=== PATIENT | female | born 1955 | race Caucasian/White ===

== ENCOUNTER 2017-05-22 10:22 | Emergency (ER) | payer BC, OTHER ==
[2017-05-22 11:07] VITALS: BP 120/78
--- NOTE | 2017-05-22 11:13 | RAD ---
Indication: Wrist injury. 2 views of the wrist demonstrates old injury of the ulnar styloid process. No fracture is identified. IMPRESSION: Old fracture distal ulna. No recent fracture is identified.
--- NOTE | 2017-05-22 12:50 | UC ---
Hand/Wrist HPI - HPI Summary HPI Summary: FOUR WEEKS OF RIGHT WRIST PAIN. HAD TRAUMA INJURY 4WEEKS AGO, BUT HAS REINJURED RIGHT WRIST SEVERAL TIMES SINCE THEN. PAIN IN (RADIAL ASPECT OF) WRIST. WORSE WITH MOVEMENT OF THUMB. - History Of Current Complaint Chief Complaint: UCUpperExtremity Stated Complaint: RIGHT WRIST PAIN Time Seen by Provider: 05/22/17 10:36 Hx Obtained From: Patient Onset/Duration: Sudden Onset, Lasting Weeks, Still Present Severity Initially: Mild Severity Currently: Mild Pain Intensity: 2 Pain Scale Used: 0-10 Numeric Character Of Pain: Sharp, Dull, Aching, Spasmodic Aggravating Factor(s): Movement, Flexion, Extension Alleviating: Nothing Associated Signs And Symptoms: Positive: Negative Related History: Dominant Hand Right - Allergies/Home Medications Allergies/Adverse Reactions: Allergies Allergy/AdvReac Type Severity Reaction Status Date / Time No Known Allergies Allergy Verified 05/22/17 10:35 Home Medications: Home Medications NK [No Home Medications Reported] 05/22/17 [History Confirmed 05/22/17] PMH/Surg Hx/FS Hx/Imm Hx Previously Healthy: Yes - Surgical History Surgical History: Yes Surgery Procedure, Year, and Place: Tubal - Family History Known Family History: Negative: Other - NO JOINT LAXITY - Social History Occupation: Employed Full-time Lives: With Family Alcohol Use: "maybe once a month" Substance Use Type: None Smoking Status (MU): Former Smoker Type: Cigarettes Amount Used/How Often: 1/2 PPD Length of Time of Smoking/Using Tobacco: ~20 Years Have You Smoked in the Last Year: No When Did the Patient Quit Smoking/Using Tobacco: 1999 - Immunization History Most Recent Influenza Vaccination: Not the Season Review of Systems Constitutional: Negative Skin: Negative Eyes: Negative ENT: Negative Respiratory: Negative Cardiovascular: Negative Gastrointestinal: Negative Genitourinary: Negative Motor: Negative Neurovascular: Negative Musculoskeletal: Arthralgia, Myalgia Neurological: Negative Psychological: Negative All Other Systems Reviewed And Are Negative: Yes Physical Exam Triage Information Reviewed: Yes Appearance: Well-Appearing, Well-Nourished, Pain Distress Vital Signs: Initial Vital Signs Temp 97.3 F 05/22/17 10:30 Pulse 80 05/22/17 10:30 Resp 14 05/22/17 10:30 BP 120/78 05/22/17 10:30 Pulse Ox 97 07/27/17 10:30 Vital Signs Reviewed: Yes Eye Exam: Normal Eyes: Positive: Conjunctiva Clear ENT Exam: Normal ENT: Positive: Normal ENT inspection, TMs normal Dental Exam: Normal Neck exam: Normal Neck: Positive: Supple, Nontender, No Lymphadenopathy Respiratory Exam: Normal Respiratory: Positive: Chest non-tender, Lungs clear, Normal breath sounds, No respiratory distress, No accessory muscle use Cardiovascular Exam: Normal Cardiovascular: Positive: RRR, No Murmur, Pulses Normal Abdominal Exam: Normal Musculoskeletal: Positive: Strength Intact, ROM Intact, No Edema, Other: Neurological Exam: Normal Psychological Exam: Normal Psychological: Positive: Normal Response To Family Skin Exam: Normal Hand/Wrist Course/Dx - Differential Dx/Diagnosis Differential Diagnosis/HQI/PQRI: Sprain, Strain Provider Diagnoses: RIGHT WRIST SPRAIN; RIGHT DE QUARVAINS TENOSYNOVITIS Discharge - Discharge Plan Condition: Stable Disposition: HOME Patient Education Materials: Wrist Injury (ED), De Quervain Disease (ED) Referrals: [facility] [place] [facility]IAN REFERRAL [Outside] Eloisa Leon MD [Medical Doctor] - No Primary Care Phys,NOPCP [Primary Care Provider] -
== END 2017-05-22 11:51 | disposition home or self-care (01) ==
LOC: UCCORT 10:22
DX: S63.501A Unspecified sprain of right wrist, initial encounter (principal); M65.4 Radial styloid tenosynovitis [de Quervain]; X58.XXXA Exposure to other specified factors, initial encounter; Y93.9 Activity, unspecified; Y92.9 Unspecified place or not applicable; Z87.891 Personal history of nicotine dependence
CPT/HCPCS: 99212; G0463

== ENCOUNTER 2019-05-18 11:07 | Emergency (ER) | payer BC, OTHER ==
[2019-05-18] MEDS ORDERED: Ondansetron INJ* 2 MG/ML VIAL IV ONE (12:52)
[2019-05-18] MEDS ORDERED: NS 0.9% 1000 ML** 1,000 ML IV ONE (12:52)
[2019-05-18] MEDS ORDERED: Morphine 4 MG/ML VIAL (1 ml) 4 MG/ML VIAL IV ONE (12:52)
--- NOTE | 2019-05-18 12:54 | ED ---
Abdominal Pain/Female - HPI Summary HPI Summary: This patient is a 63 year old F presenting to [facility] accompanied by with a chief complaint of diffuse abdominal pain since 05/15/19. Occurred after eating half a sub. Per triage, the patient rates the pain 8/10 in severity. Patient reports bloating, diarrhea, nausea, fevers, chills. Patient denies vomiting. Pt has PMHx of diverticulitis. - History of Current Complaint Chief Complaint: EDAbdPain Stated Complaint: ABDOMINAL PAIN PER PATIENT Time Seen by Provider: 05/18/19 12:39 Hx Obtained From: Patient Onset/Duration: Lasting Days Timing: Constant Severity Initially: Severe Severity Currently: Severe Pain Intensity: 8 Pain Scale Used: 0-10 Numeric Location: Diffuse Radiates: No Aggravating Factor(s): Food Alleviating Factor(s): Nothing Associated Signs and Symptoms: Positive: Fever, Nausea, Diarrhea, Other: - chills. Negative: Vomiting Allergies/Adverse Reactions: Allergies Allergy/AdvReac Type Severity Reaction Status Date / Time No Known Allergies Allergy Verified 05/22/17 10:35 PMH/Surg Hx/FS Hx/Imm Hx GI History: Reports: Hx Diverticulosis Sensory History: Denies: Hx Legally Blind EENT History: Denies: Hx Deafness - Surgical History Surgery Procedure, Year, and Place: Tubal Infectious Disease History: No Infectious Disease History: Denies: Traveled Outside the [place] in Last 30 Days - Family History Known Family History: Negative: Other - NO JOINT LAXITY - Social History Occupation: Unemployed Alcohol Use: Occasionally Hx Substance Use: No Substance Use Type: Reports: None Smoking Status (MU): Former Smoker Type: Cigarettes Amount Used/How Often: 1/2 PPD Length of Time of Smoking/Using Tobacco: ~20 Years Have You Smoked in the Last Year: No Review of Systems Positive: Fever, Chills Positive: Abdominal Pain, Diarrhea, Nausea. Negative: Vomiting All Other Systems Reviewed And Are Negative: Yes Physical Exam - Summary Physical Exam Summary: GENERAL: Patient is a well-developed and nourished F who is lying comfortable in the stretcher. Patient is not in any acute respiratory distress. HEAD AND FACE: Normocephalic EYES: PERRLA, EOMI x 2. EARS: Hearing grossly intact. MOUTH: Oropharynx within normal limits. NECK: Supple, trachea is midline, no adenopathy, no JVD, no carotid bruit. CHEST: Symmetric, no tenderness at palpation LUNGS: Clear to auscultation bilaterally. No wheezing or crackles. CVS: Regular rate and rhythm, S1 and S2 present, no murmurs or gallops appreciated. ABDOMEN: Soft, Diffusely tender to palpation, especially in LLQ. Bowel sounds are normal. No abnormal abdominal pulsations. EXTREMITIES: Full ROM in all major joints, no edema, no cyanosis or clubbing. NEURO: Alert and oriented x 3. No acute neurological deficits. Speech is normal and follows commands. SKIN: Dry and warm Triage Information Reviewed: Yes Vital Signs On Initial Exam: Initial Vitals Temp Pulse Resp BP Pulse Ox 97.8 F 111 16 140/89 99 05/18/19 11:08 05/18/19 11:08 05/18/19 11:08 05/18/19 11:08 05/18/19 11:08 Vital Signs Reviewed: Yes Diagnostics - Vital Signs Vital Signs Temp Pulse Resp BP Pulse Ox 05/18/19 11:08 97.8 F 111 16 140/89 99 - Laboratory Result Diagrams: 05/18/19 13:07 05/18/19 13:07 Lab Statement: Any lab studies that have been ordered have been reviewed, and results considered in the medical decision making process. - CT CT Abdomen/Pelvis CT Interpretation Completed By: Radiologist Summary of CT Findings: CT Abdomen/Pelvis reveals, per radiologist, IMPRESSION: Findings consistent with diverticulitis of the sigmoid colon presumably at the junction between the descending colon and sigmoid colon. Pericolonic infiltration of fat is noted. No evidence of peridiverticular abscess is noted. ED physician has reviewed this radiology report. Re-Evaluation - Re-Evaluation First Eval Re-Evaluation Time: 15:13 Comment: Discussed results and plan of care with pt. Abdominal Pain Fem Course/Dx - Course Course Of Treatment: This patient is a 63 year old F presenting to [facility] accompanied by with a chief complaint of diffuse abdominal pain since . Physical Exam Findings are nml except abdomen is diffusely tender to pal palpation, worse in LLQ. Blood work obtained. Creatinine is 0.99, AST is 12 , C - reactive protein is 17.36. UA obtained. Ur specific gravity is 1.006, Urine ketones is 1+, urine blood is 2+, Urine bacteria IS 1+. CT Abdomen/ Pelvis reveals, per radiologist, IMPRESSION: Findings consistent with diverticulitis of the sigmoid colon presumably at the junction between the descending colon and sigmoid colon. Pericolonic infiltration of fat is noted. No evidence of peridiverticular abscess is noted. In the ED course the patient was given ketorolac INJ 15mg IV, morphine 4 mg IV, Ondansetron INJ 4 mg IV, and fluids. I discussed results with patient, and she reports feeling better. She is hemodynamically stable and safe for discharge. Strict return precautions given and she will otherwise follow up with her PCP. - Diagnoses Provider Diagnoses: Diverticulitis Discharge - Sign-Out/Discharge Documenting (check all that apply): Patient Departure - Discharge Patient Received Moderate/Deep Sedation with Procedure: No - Discharge Plan Condition: Stable Disposition: HOME Prescriptions: Ciprofloxacin TAB* [Cipro 500 MG TAB*] 500 mg PO BID 14 Days #28 tab metroNIDAZOLE [Flagyl] 500 mg PO TID #42 tablet Ondansetron ODT TAB* [Zofran 4 MG Odt TAB*] 4 mg PO Q8H PRN #12 tab.odt MDD 3 PRN Reason: Nausea Patient Education Materials: Diverticulitis (ED) Referrals: [facility] [Outside] - 3 Days Additional Instructions: Follow up with your primary care physician in 1-3 days. RETURN TO THE EMERGENCY DEPARTMENT FOR CHANGING OR WORSENING SYMPTOMS. - Billing Disposition and Condition Condition: STABLE Disposition: Home - Attestation Statements Document Initiated by Lissibe: Yes Documenting Scribe: Vijaya Sunshine Provider For Whom Carlose is Documenting (Include Credential): Dr. Zara Awan MD Scribe Attestation: Vijaya Abbasi scribed for Dr. Zara Awan MD on 05/19/19 at 0731. Scribe Documentation Reviewed: Yes Provider Attestation: The documentation as recorded by the Vijaya loo accurately reflects the service I personally performed and the decisions made by me, Dr. Zara Awan MD Status of Scribe Document: Viewed
[2019-05-18] MEDS ORDERED: Ketorolac INJ* 15 MG/ML 1 ML VIAL ONE (13:17)
[2019-05-18] MEDS ORDERED: Ketorolac INJ* 15 MG/ML 1 ML VIAL IV PUSH ONE (13:18)
[2019-05-18 13:34] LABS: ABS Lymphocytes 1.3 10^3/ul (1.0-4.8); ABS Monocytes 0.5 10^3/ul (0-0.8); ABS Neutrophils 6.7 10^3/ul (1.5-7.7); Eosinophil % 0.5 %; Hematocrit 44 % (35-47); Hemoglobin 15.2 g/dL (12.0-16.0); Lymphocyte % 15.5 %; Mean Corpuscular HGB Conc 35 g/dL (31-36); Mean Corpuscular Hemoglobin 31 pg (27-31); Mean Corpuscular Volume 90 fL (80-97); Mean Platelet Volume 9.1 fL (7.4-10.4); Nucleated Red Blood Cells % 0.2; Platelet Count 253 10^3/uL (150-450); Red Blood Count 4.85 10^6 /uL (3.70-4.87); Red Cell Distribution Width 13 % (10-15); White Blood Count 8.5 10^3/uL (3.5-10.8)
[2019-05-18 14:08] LABS: Albumin 4.5 g/dL (3.2-5.2); Albumin/Globulin Ratio 1.2 (1-3); BUN/Creatinine Ratio 18.2 (8-20); C Reactive Protein 17.36 mg/L (<8.01); Calcium 10.2 mg/dL (8.6-10.3); EGFR African American 68.8 (>60); EGFR Non-African American 56.8 (>60); Globulin 3.7 g/dL (2-4); Potassium 3.7 mmol/L (3.5-5.0); Total Bilirubin 0.6 mg/dL (0.2-1.0); Total Protein 8.2 g/dL (6.4-8.9)
[2019-05-18 14:21] LABS: Urine Appearance Clear; Urine Bacteria 1+ (Absent); Urine Bilirubin Negative (Negative); Urine Blood 2+ (Negative); Urine Color Straw; Urine Glucose Negative (Negative); Urine Ketones 1+ (Negative); Urine Nitrite Negative (Negative); Urine Protein Negative (Negative); Urine Red Blood Cell 2+(6-10/hpf) (Absent); Urine Specific Gravity 1.006 (1.010-1.030); Urine Urobilinogen Negative (Negative); Urine White Blood Cell Trace(0-5/hpf) (Absent)
[2019-05-18] MEDS ORDERED: Iodixanol* (CONTRAST) 320 MG/ML 100 ML SDV IV ONE (14:22)
[2019-05-18] MEDS ORDERED: Ciprofloxacin TAB* 500 MG PO ONE (15:12)
[2019-05-18] MEDS ORDERED: metroNIDAZOLE TAB* 250 MG PO ONE (15:12)
[2019-05-18 15:54] VITALS: BP 161/77
== END 2019-05-18 15:53 | disposition home or self-care (01) ==
LOC: ED 11:07
DX: K57.32 Diverticulitis of large intestine without perforation or abscess without bleeding (principal); R50.9 Fever, unspecified; R11.0 Nausea; R19.7 Diarrhea, unspecified; Z87.891 Personal history of nicotine dependence
CPT/HCPCS: 36415; 74177; 80053; 81003; 81015; 83605; 83690; 85025; 85730; 86140; 87040; 87086; 96361; 96374; 96375; 99283; A9270-GY; J1885; J2270; J2405; Q9967